=== PATIENT | female | born 1945 | race Caucasian/White ===

== ENCOUNTER 2016-08-14 11:36 | Observation (INO) | payer MEDICARE, OTHER ==
[~2016-08-14] VITALS: Ht 160 cm; Wt 78.9 kg
[~2016-08-14 11:36] MED LIST: ALBU8.5H3 INH; ASC500 PO; ASPI-664 PO; ATOR40TA21 PO; CLOP75TA19 PO; EZET10TA3 PO; FAMO20TA18 PO; HYDR12.58 PO; ISOS60TA36 PO; LEVO500T72 PO; LEVO50TA74 PO; METO-53 PO; MULT1TAB59 PO; RANO10002 PO; VITA1CAP38 PO
--- NOTE | 2016-08-14 12:31 | RADRPT ---
PROCEDURE: XR Chest. CLINICAL INDICATION: Chest and abdomen pain. TECHNIQUE: Single frontal view. COMPARISON: 08/20/2014. FINDINGS: The lungs are clear. The heart size is normal. There is calcification in the aorta consistent with atherosclerosis. There is no pleural effusion. There is no pneumothorax. IMPRESSION: 1. Atherosclerosis. 2. Otherwise normal chest radiograph. 3. No significant change from 08/20/2014. RPTAT: QQ .Som Holt MD, MD Date Time Electronically viewed and signed by .Som Holt MD, MD on 08/14/2016 12:31 .R/
[2016-08-14 12:45] LABS: BASOPHILS % 0.5 % (0.0-2.0); EOSINOPHILS # 0.1 10^3/ul (0.0-0.5); EOSINOPHILS % 0.9 % (0.0-7.0); HEMOGLOBIN 13.5 g/dl (12.0-16.0); LYMPHOCYTES # 2.8 10^3/ul (0.8-2.9); LYMPHOCYTES % 27.9 % (15.0-51.0); MEAN CORPUSCULAR HEMOGLOBIN 31.8 pg (29.0-33.0); MEAN CORPUSCULAR HGB CONC 33.8 g/dl (32.0-37.0); MEAN CORPUSCULAR VOLUME 94.3 fl (82.0-101.0); MEAN PLATELET VOLUME 8.5 fl (7.4-10.4); MONOCYTE # 0.8 10^3/ul (0.3-0.9); NEUTROPHIL # 6.4 10^3/ul (1.6-7.5); NEUTROPHILS % 62.7 % (39.0-77.0); PLATELET COUNT 259 10^3/UL (140-440); RED BLOOD COUNT 4.24 10^6/ul (4.20-5.40); RED CELL DISTRIBUTION WIDTH 13.2 % (11.5-14.5); UNCORRECTED WBC 10.2 10^3/ul (4.8-10.8); WHITE BLOOD COUNT 10.2 10^3/ul (4.8-10.8)
[2016-08-14 12:54] LABS: ALBUMIN 4.3 g/dl (3.3-4.9); CHLORIDE 102 mmol/L (97-110); INR 1.07; PROTIME 13.9 Sec (12.2-14.2); PT RATIO 1.1; SODIUM 146 mmol/L (135-144)
[2016-08-14 12:55] LABS: POTASSIUM 4.4 mmol/L (3.5-5.1)
[2016-08-14 12:57] LABS: ALANINE AMINOTRANSFERASE 19 IU/L (13-69); ALKALINE PHOSPHATASE 93 IU/L (42-121); ANION GAP 20 (8-16); ASPARTATE AMINO TRANSFERASE 27 IU/L (15-46); BILIRUBIN,INDIRECT 0.3 mg/dl (0-1.1); BILIRUBIN,TOTAL 0.3 mg/dl (0.2-1.3); BLOOD UREA NITROGEN 17 mg/dl (7-20); CARBON DIOXIDE 28 mmol/L (21-31); CREATININE 1.02 mg/dl (0.44-1.00); GLUCOSE 97 mg/dl (70-220); TOTAL PROTEIN 8.2 g/dl (6.1-8.1)
[2016-08-14 12:58] LABS: CALCIUM 9.9 mg/dl (8.4-10.2)
[2016-08-14 12:59] LABS: CONDITION 1
[2016-08-14 13:19] LABS: TROPONIN-I < 0.012 ng/ml (0.00-0.12)
--- NOTE | 2016-08-14 13:34 | ERA ---
ER Documentation Chief Complaint Date/Time DATE: 08/14/16 TIME: 13:23 Chief Complaint SEND BY PMD DUE ABNORMAL EKG, CP HPI 70-year-old woman referred here by her PMD for recent EKG changes and increasing exertional chest pain. Patient has a history coronary artery disease and is status post coronary artery stenting of LAD. She has had previous KS although it seems she has preserved left ventricular ejection fraction. She has had no cough, no fevers or chills, no calf or leg swelling, no headache or blurry vision. ROS All systems reviewed and are negative except as per history of present illness. Medications Home Meds Reported Medications Hydrochlorothiazide* (Hydrochlorothiazide*) 12.5 Mg Tablet, 12.5 MG PO DAILY, TAB 08/20/14 Aspirin (Aspirin Low Dose) 81 Mg Tablet.dr, 81 MG PO DAILY 09/26/12 Isosorbide Mononitrate (Isosorbide Mononitrate) 60 Mg Tab.sr.24h, 60 MG PO HS 09/26/12 Famotidine* (Famotidine*) 20 Mg Tablet, 20 MG PO BID 09/26/12 Atorvastatin (Lipitor) 40 Mg Tablet, 40 MG PO HS 09/26/12 Clopidogrel Bisulfate (Plavix) 75 Mg Tablet, 75 MG PO HS 09/26/12 Ranolazine* (Ranexa*) 1,000 Mg Tab.sr.12h, 1000 MG PO BID 09/26/12 Metoprolol (Lopressor) 50 Mg Tablet, 50 MG PO BID 09/26/12 Levothyroxine Sodium* (Levothyroxine Sodium*) 50 Mcg Tablet, 50 MCG PO DAILY 09/26/12 Discontinued Reported Medications Ascorbic Acid (Vitamin C) 500 Mg Tab, 500 MG PO DAILY, TAB 08/20/14 Multivitamins* (Multivitamins*) 1 Tab Tablet, 1 TAB PO DAILY 09/26/12 Vitamin B Complex* (Vitamin B Complex*) 1 Cap Capsule, 1000 MG PO DAILY 09/26/12 Ezetimibe* (Zetia*) 10 Mg Tablet, 10 MG PO HS 09/26/12 Discontinued Scripts Albuterol Sulfate* (Proair HFA*) 8.5 Gm Hfa.aer.ad, 2 PUFF INH Q4 Y for SHORTNESS OF BREATH for 30 Days, INH Prov:VIRGEN MARTINEZ MD 08/22/14 Levofloxacin* (Levaquin*) 500 Mg Tablet, 500 MG PO DAILY for 7 Days, TAB Prov:VIRGEN MARTINEZ MD 08/22/14 Allergies Allergies: Coded Allergies: No Known Drug Allergy (Verified Allergy, Unknown, 08/14/16) PMhx/Soc Coronary artery disease and KS with previous LAD stenting, hypertension, obstructive sleep apnea, hypothyroidism, depression, dyslipidemia, and angina. History of Surgery: Yes (c section and breast transplants) Anesthesia Reaction: No Hx Neurological Disorder: Yes Hx Respiratory Disorders: No Hx Cardiac Disorders: No Hx Psychiatric Problems: No Hx Miscellaneous Medical Probl: Yes (breast implants hard) Hx Alcohol Use: No Hx Substance Use: No Hx Tobacco Use: No Smoking Status: Never smoker FmHx Family History: diabetes Physical Exam Vitals Vital Signs Date Time Temp Pulse Resp B/P Pulse Ox O2 Delivery O2 Flow Rate FiO2 08/14/16 12:40 Nasal Cannula 2 08/14/16 11:40 98.1 73 18 116/61 99 Physical Exam GENERAL: Well-developed, well-nourished, well-hydrated, in no apparent distress , looks nontoxic in appearance HEENT: Moist mucous membranes, pink conjunctiva, no cervical spine tenderness or step-off deformities, no goiter, no jaundice or icterus, extraocular movements intact without pain. No submandibular induration, and no pharyngeal erythema NEURO: Alert and oriented 3, cranial nerves II through XII intact bilaterally, pupils equal round reactive to light, no focal deficits or facial asymmetry, sensation intact distally Strength 5/5 in upper and lower extremities bilaterally CARDIAC: Regular rate and rhythm, no murmurs rubs or gallops LUNGS: Clear bilaterally no wheezing crackles or stridor ABDOMEN: Soft nontender, no guarding, no rigidity, no rebound, no psoas sign no obturator sign. Normoactive bowel sounds SKIN: Warm and dry to touch, no abrasions, contusions, or hematomas, no lacerations, no ecchymosis, no target lesions, and without ulcers EXTREMITIES: No clubbing cyanosis or edema, calves are bilaterally symmetrical, no Homans sign, no popliteal cord sign. Distal pulses equal and bilateral PSYCH: Normal affect without agitation or irritability Result Diagram: 08/14/16 1230 08/14/16 1230 Results 24 hrs Laboratory Tests Test 08/14/16 12:30 Alanine Aminotransferase (ALT/SGPT) 19IU/L Albumin 4.3g/dl Albumin/Globulin Ratio 1.10 Alkaline Phosphatase 93IU/L Anion Gap 20 Aspartate Amino Transf (AST/SGOT) 27IU/L Basophils # 0.010^3/ul Basophils % 0.5% Blood Urea Nitrogen 17mg/dl Calcium Level 9.9mg/dl Carbon Dioxide Level 28mmol/L Chloride Level 102mmol/L Creatinine 1.02mg/dl Direct Bilirubin 0.00mg/dl Eosinophils # 0.110^3/ul Eosinophils % 0.9% Globulin 3.90g/dl Glucose Level 97mg/dl Hematocrit 40.0% Hemoglobin 13.5g/dl INR International Normalized Ratio 1.07 Indirect Bilirubin 0.3mg/dl Lipase 93U/L Lymphocytes # 2.810^3/ul Lymphocytes % 27.9% Mean Corpuscular Hemoglobin 31.8pg Mean Corpuscular Hemoglobin Concent 33.8g/dl Mean Corpuscular Volume 94.3fl Mean Platelet Volume 8.5fl Monocytes # 0.810^3/ul Monocytes % 8.0% Neutrophils # 6.410^3/ul Neutrophils % 62.7% Nucleated Red Blood Cells # 0.010^3/ul Nucleated Red Blood Cells % 0.0/100WBC Platelet Count 57921^3/UL Potassium Level 4.4mmol/L Prothrombin Time 13.9Sec Prothrombin Time Ratio 1.1 Red Blood Count 4.2410^6/ul Red Cell Distribution Width 13.2% Sodium Level 146mmol/L Total Bilirubin 0.3mg/dl Total Protein 8.2g/dl Troponin I < 0.012ng/ml White Blood Count 10.210^3/ul Procedures/MDM IV line was established patient was placed on director prospect rhythm strip revealed a sinus rhythm at about 70 bpm with upright P and T waves. Patient was afebrile. One AP view of the chest performed, read by me reveals no acute infiltrates, normal mediastinum, sharp costophrenic and cardiac borders, no air under the diaphragm. Otherwise unremarkable chest x-ray. EKG performed, read by me: 65 bpm, normal sinus rhythm, normal axis, no acute ST segment changes, narrow QRS complex, with good R-wave progression in precordial leads. I administered aspirin 325 mg p.o. for cardioprotective measures. CBC and electrolytes were normal, liver function tests were normal, troponin was negative. Patient will be admitted to telemetry setting for continued medical management and cardiology consultation Departure Diagnosis: Primary Impression: Chest pain Qualified Code: R07.9 - Chest pain, unspecified type Condition: SANTOS Narvaez MD Aug 14, 2016 13:34
[2016-08-14] MEDS ORDERED: ASPIRIN 325 MG TAB PO ONE (14:00)
[2016-08-14] MEDS ORDERED: NITROGLYCERIN (SL) 0.4 MG TAB SL PRN (14:00)
[2016-08-14] MEDS ORDERED: ZOLPIDEM 5 MG TAB PO PRN (14:00)
[2016-08-14] MEDS ORDERED: MAGNESIUM HYDROXIDE 30ML CUP PO PRN (14:00)
[2016-08-14] MEDS ORDERED: DOCUSATE SODIUM 100 MG CAP PO PRN (14:00)
[2016-08-14] MEDS ORDERED: ACETAMINOPHEN 325 MG TAB PO PRN (14:00)
[2016-08-14] MEDS ORDERED: LORAZEPAM 0.5 MG TAB PO PRN (14:00)
[2016-08-14] MEDS ORDERED: ONDANSETRON 4 MG INJ IV PRN (14:00)
[2016-08-14] MEDS ORDERED: NACL 0.9% 3 ML SYG IV SCH (14:00)
[2016-08-14] MEDS ORDERED: morphine 2 MG INJ IV PRN (14:00)
[2016-08-14 14:25] LABS: CK-MB 0.39 ng/ml (0.0-2.4)
--- NOTE | 2016-08-14 15:42 | HP ---
DATE OF ADMISSION: 08/14/2016 REASON FOR ADMISSION: T-wave inversion in anterolateral leads. Chest pain, rule out acute coronary syndrome. HISTORY OF PRESENT ILLNESS: The patient is a 70-year-old female with history of coronary artery disease, status post stenting twice, history of IL with preserved ejection fraction, history of obstructive sleep apnea, hypothyroidism, depression, hypertension, dyslipidemia, angina, although she takes Imdur and Ranexa, recently status post cardiac angiogram back in 2009 where she had stent ing done to the LAD, also the ramus intermedius was stented as well. In 2012, the ramus intermedius was 100% occluded and was a small vessel. The circumflex was 40%, the RCA was 40%, LAD was 20% an d the left main was 10% to 20%. The patient at that time was treated conservatively. The patient presented to my offic e today. She stated that she has to leave the state in less than 2 weeks and she is concerned about her heart condition as she has been experiencing on and off episodes of chest pain. She describes it as left-sided, it comes and goes and it is quite bothersome to her. In my office today, EKG was done and shows T-wave inversions in anterolateral leads, appears to be more obvious as compared to p rior EKGs. Upon discussion with the patient, the patient was overall concerned and it was decided t o send her to the [facility] for evaluation. In the ER, EKG showed th e same. It was decided to admit the patient to rule out acute coronary syndrome. Initial troponin was negative. The patient is admitted for further care. PAST MEDICAL HISTORY: Includes coronary artery disease, IL, hypertension, dyslipidemia, hypothyroid ism, depression, obstructive sleep apnea, obese state. ALLERGIES: NO KNOWN DRUG ALLERGIES. SOCIAL HISTORY: The patient is . She has 2 kids. SOCIAL HISTORY: Tobacco denies. Alcohol, she used to drink in the past. IV drug abuse, denies. 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 PAST SURGICAL HISTORY: Includes 2 C-sections, breast implants, tubal ligation, colonoscopy in 09/[address] Felipe shows 2 polyps in the rectum, which were removed. There was tubular adenoma, poo r prep to the right, it was recommended to repeat colonoscopy in 2 years. FAMILY HISTORY: Mother from CVA. She was 60 years old. Father 5 years ago, he was 84. He had tuberculosis, CVA and IL. The patient does have sleep apnea and she uses CPAP, previously se en by Dr. Hernández. CURRENT MEDICATIONS: Include the followin. Plavix 75 at bedtime. 2. Lipitor 40 at bedtime. 3. Imdur 60 at bedtime. 4. Lopressor 50 b.i.d. 5. Ranexa 1000 b.i.d. 6. Aspirin 81 daily. 7. Hydrochlorothiazide 12.5 daily. 8. Pepcid 20 b.i.d. 9. Synthroid 50 mcg daily. PHYSICAL EXAMINATION: VITAL SIGNS: Blood pressure is 116/61, pulse ox is 99 on 2 L, temperature 98.1, respirations 18, pu lse is 73. GENERAL: The patient is in no acute distress. She is overweight, slightly pale. HEENT: No JVD. CARDIOVASCULAR: S1 and S2, regular rate and rhythm. LUNGS: Clear. ABDOMEN: Soft, nontender. EXTREMITIES: Nonpitting edema of the lower extremities. NEUROLOGIC: Cranial nerves II through XII grossly intact. The patient moving all extremities. LABORATORY DATA: White count is 10.2, hemoglobin 13.5, hematocrit 40, platelet count 259, neutrophi ls 63%, lymphocytes monocytes 8%. Chemistry: Sodium is 146, potassium is 4.4, chloride 102, bicarb is 28, BUN is 17, creatinine 1.02, glucose of 97. AST 27, ALT 90, alk phos is 93. CK 72. Troponin is negative x1. Total protein 8.2, albumin is 4.3. INR is 1.07. DIAGNOSTIC DATA: Again, colonoscopy done back in 2012. At that time colonic polyp in the rectosigm oid area shows tubular adenoma. Also most recent surgery she had on 12/23/2015, she underwent remov al of bilateral breast implants and bilateral capsulectomy. This was removed because of significant breast pain. Chest x-ray shows atherosclerosis, otherwise normal chest radiograph. EKG showed ext ensive T-wave abnormalities anterolateral leads. ASSESSMENT AND PLAN: This is a 70-year-old female with history of coronary artery disease , hypertension, dyslipidemia, hypothyroidism, depression, obstructive sleep apnea, presented with ep isodic chest pain with T-wave inversions. The patient does have risk factors. 1. Chest pain with definite risk factors. Last angiogram was done in 2012. Continue medical manag ement, aspirin, statin, and Ranexa, Imdur. Serial troponins will be obtained as well as echocardiog yannick to evaluate ejection fraction. Dr. Levy will be consulted regarding EKG changes and patient's symptoms. 2. Respiratory, stable. Advised the patient to used her CPAP at night. Weight loss is definitely advised. 3. Gastrointestinal. Continue Protonix for gastrointestinal prophylaxis. Outpatient followup with gastroenterology regarding repeat colonoscopy. Previous colonoscopy showed poor prep and she had p olyps. 4. Hypothyroidism. Follow up with TSH level. Continue Synthroid. 5. The patient will be placed on deep vein thrombosis prophylaxis and gastrointestinal prophylaxis. We will follow. Dictated By: VIRGEN CORONADO/SUNDEEP Conf#: [id number] DID#: [id number]
--- NOTE | 2016-08-14 17:39 | RADRPT ---
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 Physician: VIRGEN MARTINEZ Quality: Technically Difficult Study Procedures: Transthoracic echocardiogram with complete 2D, M-Mode, and doppler examination. Indications: Chest Pain. Coronary Artery Disease. 2D/M Mode Doppler Measurement Value Normal Ranges Measurement Value Normal Ranges LVIDd 2D 4.5 3.5 - 5.6 cm AV Peak Jorge 1.4 m/sec LVIDs 2D 3.1 2.1 - 4.1 cm AV Peak PG 8.0 mmHg FS 2D 30.7 % LVOT Peak Jorge 1.0 m/sec LVPWd 2D 1.0 0.6 - 1.1 cm LVOT Peak PG 4.0 mmHg IVSd 2D 1.0 0.6 - 1.1 cm MV E Peak Jorge 0.6 m/sec IVS/LVPW 2D 1.0 MV A Peak Jorge 0.8 m/sec AoR Diam 2D 2.7 2.0 - 3.7 cm MV E/A 0.8 LA/Ao 2D 1 0 - 1 MV Decel Time 313 msec EDV 2D 90.5 cm3 MV E/A 0.8 ESV 2D 30.1 cm3 LA Dimen 2D 3.4 2.3 - 4.0 cm Findings Left Ventricle: Normal left ventricular systolic function. Normal left ventricular cavity size. Normal left ventricular wall thickness. Ejection fraction is visually estimated at 60 %. Tissue Doppler/Mitral Doppler indices are consistent with impaired relaxation (Stage I diastolic dysfunction). Right Ventricle: Normal right ventricular size. Normal right ventricular systolic function. Left Atrium: The left atrium is normal in size. Right Atrium: The right atrium is normal in size. Mitral Valve: Mitral valve leaflets appear mildly thickened. Mild mitral annular calcification. Trace mitral regurgitation. Aortic Valve: No significant aortic stenosis or insufficiency. Normal trileaflet aortic valve structure. Tricuspid Valve: Tricuspid valve not well visualized. There is trace tricuspid regurgitation. Pulmonic Valve: Pulmonic valve not well visualized. There is trace pulmonic regurgitation. Pericardium: There is an anterior echo free space consistent with epicardial fat pad. Aorta: Normal aortic root. IVC: Normal size and no respiratory collapse consistent with elevated right atrial pressure. Conclusions 1.Normal left ventricular systolic function. Normal left ventricular cavity size. Normal left ventricular wall thickness. Ejection fraction is visually estimated at 60 %. Tissue Doppler/Mitral Doppler indices are consistent with impaired relaxation (Stage I diastolic dysfunction). 2.Mitral valve leaflets appear mildly thickened. Mild mitral annular calcification. Trace mitral regurgitation. 3.No significant aortic stenosis or insufficiency. Normal trileaflet aortic valve structure. 4.Tricuspid valve not well visualized. There is trace tricuspid regurgitation. Electronically Signed By: Wade Levy 14-Aug-2016 17:38:56 -0800 Patient Name: MALIKA MENDOZA Study Date: 14-Aug-[id number]
--- NOTE | 2016-08-14 18:00 | CONS ---
DATE OF ADMISSION: 08/14/2016 DATE OF CONSULTATION: 08/14/2016 TYPE OF CONSULTATION: Cardiology consultation. REFERRING PHYSICIAN: Saturnino Martinez MD REASON FOR CONSULTATION: Chest pain, abnormal EKG. CHIEF COMPLAINT: Fatigue. HISTORY OF PRESENT ILLNESS: Thank you for this referral. History obtained from the patient and ext ensive review of the old chart. The patient extremely poor historian. The patient also has been kn own to me from outpatient hospital followup for her hospitalization. This is a pleasant 70-year-old female with history of coronary artery disease, status post remote PCI in 2009, who has had basical ly chronic chest pain. The patient was seen last by myself in March. At that time, she had a stre ss test done which was submaximal but no ischemia was seen at 5 minutes. The patient was seen in Dr Carleen Martinez's office today for routine followup prior to her traveling to outside of the [facility]. EKG was done which was abnormal. She was admitted to the hospital for further workup. At this point, ethan es any chest pain or pressure to me. The patient said she has had chest pain intermittently once in a while and does not appear to be changing over the past six months. It is not exertional. It las ts a few seconds up to hours. Left-sided and sharp. PAST MEDICAL HISTORY: History of coronary artery disease, status post VT, status post PCI of his LA D in 2009, history of dyslipidemia, history of chronic chest pain, history of dyspnea that is possib ly of restrictive lung disease, low DLCO and history of hypothyroidism. PAST SURGICAL HISTORY: In 2009, she underwent diagnostic angiography by myself. Left main had 10% stenosis. LAD had 80% which was successfully stented using 2.5 x 12 bare metal stent. The ramus in termediate has 100% occlusion, which was successfully angioplastied. Left circumflex artery had tara nal irregularity. RCA was 30%. She apparently had an angiogram in 2011. Also in 2012 had another angiography done which showed left main 10% to 20% distal stenosis. LAD had 20% stenosis, ramus int ermedius was 100% occluded was a small vessel. The left circumflex artery was 40% occluded. Right coronary artery was 40% mid level and 40% ostial LOVE. Ejection fraction was normal at 55% to 60%. Also, she has had a breast implant and removal. Removal was done last year. ALLERGIES: NO KNOWN DRUG ALLERGIES. FAMILY HISTORY: Father had an VT at age 80. CVA in his 70s. Mother had CVA in her 50s reported. SOCIAL HISTORY: The patient does not smoke or drink. MEDICATIONS: She does not remember but per review of the old her chart from my office she is suppos ed to be takin. Aspirin. 2. Lipitor 40. 3. Vitamin D3. 4. Plavix 75. 5. Pepcid. 6. Hydrochlorothiazide 12.5. 7. Imdur 60. 8. Levothyroxine 50. 9. Metoprolol 50 b.i.d. 10. Ranexa 1000 b.i.d. REVIEW OF SYSTEMS: She denied all except for above-mentioned including positive for fatigue and tir edness. PHYSICAL EXAMINATION: VITAL SIGNS: Temperature 98.1, heart rate of 73, blood pressure 116/61, respiration rate of 18, sat urating 99%. HEENT: Normocephalic, atraumatic. Appears in no acute distress. Pupils equal and round. CARDIOVASCULAR: Regular rate and rhythm. Grade I systolic murmur. LUNGS: With no wheezes, no rhonchi. GASTROINTESTINAL: Soft, nontender. EXTREMITIES: No significant edema. CHEST: Positive reproducible chest wall tenderness. PULMONARY: With no wheezes or rales. DIAGNOSTIC DATA: EKG was personally reviewed, showed normal sinus rhythm, nonspecific ST-T abnormal ities such as ischemia. LABORATORY: Done shows WBC of 10.2, hemoglobin 13.5, platelet of 259. Sodium 146, potassium 4.4, B UN of 17, creatinine of 1.02, glucose of 97. Albumin is 4.3. EKG was personally reviewed, showed normal sinus rhythm, nonspecific ST-T abnormalities. Review of the old chart showed that she had an EKG in my office in November 2015, which also showed normal sinus rhythm with nonspecific ST-T abnormalities. ASSESSMENT AND PLAN 1. Chest pain syndrome, rule out non-ST elevation myocardial infarction. 2. Chronic chest pain on medical therapy. 3. History of coronary artery disease, history of myocardial infarction. 4. History of percutaneous coronary intervention of the left anterior descending, left circumflex a rtery and angioplasty of ramus. 5. Hypothyroidism. 6. Hypertension. 7. Dyslipidemia. RECOMMENDATIONS: The patient will be observed overnight for rule out myocardial infarction. Aspiri n, Plavix and Lipitor, Imdur, Metoprolol and Ranexa will be continued. to be considered to [place] if the cardiac enzymes are negative. I will set her up for outpatient stress test. Thank you for this referral. Dictated By: HORTENSIA ARROYO MD AV/NTS Conf#: [id number] DID#: [id number] CC: SATURNINO MARTINEZ MD;*EndCC*
[2016-08-14 18:02] VITALS: TEMP 98.1
[2016-08-14] MEDS ORDERED: ATORVASTATIN 40 MG TAB PO SCH (21:00)
[2016-08-14] MEDS ORDERED: CLOPIDOGREL 75 MG TAB PO SCH (21:00)
[2016-08-14] MEDS ORDERED: ISOSORBIDE MONONITRATE(SR)60 MG TAB PO SCH (21:00)
[2016-08-14 21:07] LABS: CREATINE KINASE 54 IU/L (23-200)
[2016-08-14 21:18] LABS: CK-MB 0.39 ng/ml (0.0-2.4)
[2016-08-14 21:22] LABS: TROPONIN-I < 0.012 ng/ml (0.00-0.12)
[2016-08-14] MEDS: METOPROLOL 50 MG TAB PO SCH (21:52)
[2016-08-14] MEDS: RANOLAZINE (SR) 500 MG TAB PO SCH (21:52)
[2016-08-15] VITALS (10 sets, daily range): BP systolic 95–148; BP diastolic 48–73; PULSE 56–70; RESP 18–19; Ht 160 cm; Wt 78.9 kg
[2016-08-15] MEDS ORDERED: PANTOPRAZOLE (EC) 40 MG TAB PO SCH (06:00)
[2016-08-15 06:49] LABS: BASOPHILS % 0.4 % (0.0-2.0); EOSINOPHILS # 0.2 10^3/ul (0.0-0.5); EOSINOPHILS % 2.2 % (0.0-7.0); HEMATOCRIT 35.6 % (37.0-47.0); HEMOGLOBIN 12.3 g/dl (12.0-16.0); LYMPHOCYTES # 2.2 10^3/ul (0.8-2.9); LYMPHOCYTES % 31.8 % (15.0-51.0); MEAN CORPUSCULAR HEMOGLOBIN 32.7 pg (29.0-33.0); MEAN CORPUSCULAR HGB CONC 34.6 g/dl (32.0-37.0); MEAN CORPUSCULAR VOLUME 94.6 fl (82.0-101.0); MEAN PLATELET VOLUME 8.9 fl (7.4-10.4); MONOCYTE # 0.5 10^3/ul (0.3-0.9); MONOCYTES % 7.8 % (0.0-11.0); NEUTROPHILS % 57.8 % (39.0-77.0); PLATELET COUNT 212 10^3/UL (140-440); RED BLOOD COUNT 3.76 10^6/ul (4.20-5.40); RED CELL DISTRIBUTION WIDTH 13.2 % (11.5-14.5); UNCORRECTED WBC 6.9 10^3/ul (4.8-10.8); WHITE BLOOD COUNT 6.9 10^3/ul (4.8-10.8)
[2016-08-15 06:56] LABS: ALBUMIN 3.4 g/dl (3.3-4.9)
[2016-08-15 06:57] LABS: POTASSIUM 4.2 mmol/L (3.5-5.1)
[2016-08-15 06:59] LABS: ALBUMIN/GLOBULIN RATIO 1.06; BILIRUBIN,INDIRECT 0.4 mg/dl (0-1.1); BILIRUBIN,TOTAL 0.4 mg/dl (0.2-1.3); CREATININE 0.89 mg/dl (0.44-1.00); TOTAL PROTEIN 6.6 g/dl (6.1-8.1)
[2016-08-15 07:00] LABS: CALCIUM 8.6 mg/dl (8.4-10.2)
[2016-08-15 07:01] LABS: CHOL/HDL RATIO 4.5 RATIO
[2016-08-15 07:24] LABS: CONDITION 1
[2016-08-15 07:24] LABS: THYROID STIMULATING HORMONE 3.24 MIU/L (0.465-4.680)
[2016-08-15] MEDS ORDERED: ENOXAPARIN 40 MG/0.4 ML SYG SC SCH (09:00)
[2016-08-15] MEDS ORDERED: LEVOTHYROXINE 50 MCG TAB PO SCH (09:00)
[2016-08-15] MEDS ORDERED: ASPIRIN (EC) 81 MG TAB PO SCH (09:00)
[2016-08-15] MEDS: METOPROLOL 50 MG TAB PO SCH (10:25)
[2016-08-15] MEDS: RANOLAZINE (SR) 500 MG TAB PO SCH (10:26)
--- NOTE | 2016-08-15 10:35 | PDOCDIS ---
Discharge Instructions CONDITION Patient Condition: Stable HOME CARE INSTRUCTIONS: Special Diet: Low fat Low cholesterol 2Gm NA ACTIVITY: Activity Restrictions: Slowly Increase Activity FOLLOW UP/APPOINTMENTS Appointments follow up with Dr. Levy on wednesday/has an appointment, see attached prescriptions, call 911 if any change in condition VIRGEN MARTINEZ MD Aug 15, 2016 10:35
[2016-08-15] MEDS ORDERED: ATOR40TA68 PO (10:37)
[2016-08-15] MEDS ORDERED: PANT40TA4 PO (10:37)
--- NOTE | 2016-08-15 15:03 | DS ---
DATE OF ADMISSION: 08/14/2016 DATE OF DISCHARGE: 08/15/2016 REASON FOR ADMISSION: Abnormal EKG, rule out acute coronary syndrome. HOSPITAL COURSE: The patient is a 70-year-old female with history of coronary artery dise ase, status post stenting twice back in 2009. The patient has history of hypothyroidism, sleep apne a, hypertension, dyslipidemia, angina, who presented to my office. The EKG my office did reveal fli pped T waves in the anterior lateral leads, more pronounced than before. The patient has been exper iencing intermittent chest pain, and she was concerned about her condition. She stated she is going out of the state soon. At [facility] in the ER, EKG confirmed the same. It was decided to admit the patient for observation to rule out acute coronary syndrome. During her hospitalization, the supriya barr was seen by the talent rep, Dr. Levy. She underwent an echocardiogram which showed normal ejection fraction 60%, stage I diastolic dysfunction. See exact report. Upon admission, the alexsandra ochoa was started on aspirin, Plavix, statin. We continued the patient on Ranexa and Imdur. She was p laced on oxygen. Serial troponins were done and they were negative. Cholesterol revealed to be 211 , LDL was high at 134 for a patient with coronary artery disease. Triglycerides 157. CMP otherwise normal. TSH 3.24, lipase 93. CBC was within normal limits as well. Chest x-ray showed atheroscle rosis, otherwise normal chest radiograph. The patient is currently feeling okay. Denies any chest pain. She will be discharged. FINAL DIAGNOSES: 1. Chest pain, rule out acute coronary syndrome. 2. Coronary artery disease. 3. Dyslipidemia. 4. Hypertension. 5. Hypothyroidism. 6. Obstructive sleep apnea. 7. Atherosclerotic cardiovascular disease. 8. History of myocardial infarction. 9. Depression. 10. Obese state with body mass index of 30.8. DIET: Low fat, low carb diet is advised. No added salt. ACTIVITY: As tolerated. The patient has an appointment with Dr. Levy, the talent rep to undergo a nuclear stress test th is coming week, so she will follow up and further cardiac care will be provided. DISCHARGE MEDICATIONS: The patient will be discharged with the following medications. 1. I am increasing patient's Lipitor to 80 mg at bedtime. 2. Continue Protonix 40 mg daily. 3. Aspirin 81 mg daily. 4. Plavix 75 mg daily. 5. Imdur 60 mg daily. 6. Synthroid 50 mcg daily. 7. Metoprolol tartrate 50 mg b.i.d. 8. Ranexa 1000 b.i.d. CONDITION ON DISCHARGE: Fair. No significant arrhythmias overnight. The patient will be discharge d today. Dictated By: VIRGEN CORONADO/SUNDEEP Conf#: [id number] DID#: [id number]
== END 2016-08-15 18:45 | disposition home or self-care (01) ==
LOC: E/R 11:36 → INTOOBSV 13:37 → TEL 13:37
PROVIDERS: ADMIT Internal Medicine; ATTEND Internal Medicine
DX: R07.9 Chest pain, unspecified (principal); I25.10 Atherosclerotic heart disease of native coronary artery without angina pectoris; Z95.5 Presence of coronary angioplasty implant and graft; I10 Essential (primary) hypertension; G47.33 Obstructive sleep apnea (adult) (pediatric); E03.9 Hypothyroidism, unspecified; F32.9 Major depressive disorder, single episode, unspecified; E78.5 Hyperlipidemia, unspecified; I25.2 Old myocardial infarction; E66.9 Obesity, unspecified; Z68.30 Body mass index [BMI] 30.0-30.9, adult; Z79.82 Long term (current) use of aspirin; Z79.02 Long term (current) use of antithrombotics/antiplatelets; Z83.3 Family history of diabetes mellitus; Z82.49 Family history of ischemic heart disease and other diseases of the circulatory system; Z82.3 Family history of stroke
CPT/HCPCS: 36415; 71010; 80053; 80061; 82550; 82553; 83690; 83735; 84443; 84484; 85025; 85610; 93005; 93306; 99285; G0378; J1650

== ENCOUNTER 2016-09-21 07:47 | Emergency (ER) | payer MEDICARE, OTHER ==
[~2016-09-21] VITALS: Wt 77.0 kg
[~2016-09-21 07:47] MED LIST changes: -ALBU8.5H3 INH; -ASC500 PO; -ATOR40TA21 PO; +ATOR40TA68 PO; -EZET10TA3 PO; -FAMO20TA18 PO; -HYDR12.58 PO; -LEVO500T72 PO; -MULT1TAB59 PO; +PANT40TA4 PO; -VITA1CAP38 PO
[2016-09-21] MEDS ORDERED: DEXAMETHASONE 10 MG/ML 1 ML INJ IM ONE (09:00)
[2016-09-21] MEDS ORDERED: ACET325T33 PO (09:11)
--- NOTE | 2016-09-21 12:09 | ERD ---
ER Documentation Chief Complaint Date/Time DATE: 09/21/16 TIME: 12:01 Chief Complaint SORE THROAT AND UNABLE TO TALK. NO SOB. NO EAR PAIN. HPI The patient is a 8-year-old female with past medical history of coronary artery disease, [place] in 2010, and 2 stents placed. She comes to the emergency department stating that she "lost her voice" 2 days ago. She reported being sick with a fever, sore throat, and body aches 5 days ago, and all of her symptoms have resolved, except her loss of voice. No home treatments. No international travel. No sick contacts. She denies any difficulty swallowing, denies drooling , denies difficulty breathing, denies respiratory distress, denies chest pain, denies fever/chills, denies nausea/vomiting, denies diarrhea or constipation, denies neck soreness or stiffness, denies headache, denies photophobia, denies dysuria, denies any other symptoms or concerns. ROS All systems reviewed and are negative except as per history of present illness. Medications Home Meds Active Scripts Acetaminophen* (Tylenol*) 325 Mg Tablet, 2 TAB PO Q6 Y for PAIN AND OR ELEVATED TEMP, #20 TAB Prov:PERLA SORIA, ELECTRONIC ORGAN MECHANIC 09/21/16 Pantoprazole* (Pantoprazole*) 40 Mg Tablet., 40 MG PO DAILY@06 for 90 Days, # 90 Prov:VIRGEN MARTINEZ MD 08/15/16 Atorvastatin* (Atorvastatin*) 40 Mg Tablet, 80 MG PO HS for 90 Days, TAB Prov:VIRGEN MARTINEZ MD 08/15/16 Reported Medications Aspirin (Aspirin Low Dose) 81 Mg Tablet., 81 MG PO DAILY 09/26/12 Isosorbide Mononitrate (Isosorbide Mononitrate) 60 Mg Tab.sr.24h, 60 MG PO HS 09/26/12 Clopidogrel Bisulfate (Plavix) 75 Mg Tablet, 75 MG PO HS 09/26/12 Ranolazine* (Ranexa*) 1,000 Mg Tab.sr.12h, 1000 MG PO BID 09/26/12 Metoprolol (Lopressor) 50 Mg Tablet, 50 MG PO BID 09/26/12 Levothyroxine Sodium* (Levothyroxine Sodium*) 50 Mcg Tablet, 50 MCG PO DAILY 09/26/12 Allergies Allergies: Coded Allergies: No Known Drug Allergy (Verified Allergy, Unknown, 08/14/16) PMhx/Soc History of Surgery: Yes (, Breast transplant Sx & removal) Anesthesia Reaction: No Hx Neurological Disorder: No Hx Respiratory Disorders: Yes (asthma) Hx Cardiac Disorders: Yes (CAD, stent x2, HTN) Hx Psychiatric Problems: No (was on antidepressant in the past) Hx Miscellaneous Medical Probl: Yes (Hx arm lift) Hx Alcohol Use: No Hx Substance Use: No Hx Tobacco Use: No Physical Exam Vitals Vital Signs Date Time Temp Pulse Resp B/P Pulse Ox O2 Delivery O2 Flow Rate FiO2 09/21/16 07:49 99.9 69 20 165/78 97 Physical Exam INITIAL VITAL SIGNS: Reviewed by me, afebrile, oximetry 97% on room air, no tachypnea GENERAL: Alert. Well developed and well nourished. No respiratory distress. No acute distress. Nontoxic appearing. HEAD: Head is normocephalic. Atraumatic. EYES: EOMI. No scleral icterus. No conjunctival injection. No clear purulent drainage. ENT: External ears, nose, and mouth normal. Ear canals clear. Tympanic membranes pearly/gonzalez, no effusion/erythema/bulging/retraction. Nasal passages patent and without rhinorrhea. Oropharynx without exudates. Tonsils +2 and without exudates. Moderate tonsillar erythema. Airway patent. Uvula midline. Moist mucous membranes. NECK: Supple. Full range of motion. Trachea midline. No meningismus. No lymphadenopathy. RESPIRATORY: No tachypnea. Clear to auscultation bilaterally. No wheezing, rales , or rhonchi. CV: Regular rate and rhythm. No murmurs, rubs, or gallops ABDOMEN: Soft, non-distended, non-tender. Bowel sounds normal in all quadrants. BACK: No CVA tenderness. Full ROM. EXTREMITIES: No obvious deformity. No clubbing or cyanosis. No edema. SKIN: Warm and dry. No diaphoresis. No obvious rashes or lesions. NEUROLOGIC: Alert and oriented x 3. Appropriate. Face is symmetric. Speech is normal. Moves all extremities equally. Results 24 hrs Current Medications Medications (Trade) Dose Ordered Sig/Dayna Route PRN Reason Start Time Stop Time Status Last Admin Dose Admin Dexamethasone (Decadron) 8 mg ONCE ONCE IM 09/21/16 09:00 09/21/16 09:01 DC 09/21/16 08:59 Procedures/MDM Nursing Notes Reviewed Previous Medical Records requested via [facility] [employer]. EMERGENCY DEPARTMENT COURSE / MEDICAL DECISION MAKING: The patient comes to the ED secondary to loss of voice 2 days. Differential diagnosis upon initial evaluation includes but is not limited to: Peritonsillar abscess, epiglottitis, strep pharyngitis, viral pharyngitis, laryngitis, viral syndrome, URI, pneumonia, sepsis, meningitis, and others. The case was discussed with supervising physician Dr. Barcenas. It was agreed that the patient will be treated with Decadron 8 mg IM, and that she is an appropriate candidate for outpatient management and follow-up at this time. She denied any respiratory difficulty, difficulty swallowing, sore throat, drooling , malaise, fever, chills, nausea, vomiting, diarrhea, body aches, neck soreness or stiffness, cough, or any other signs or symptoms. Given this, her benign physical exam, and her history of present illness, I have low suspicion at this time for peritonsillar abscess, epiglottitis, strep pharyngitis, viral pharyngitis, pneumonia, sepsis, meningitis, or any serious cause of the patient' s symptoms. The patient was treated with Decadron 8 mg IM. Final impression: Laryngitis Based on patient's history of present illness and physical examination the decision was made to discharge. There is no evidence of life threatening injuries or illnesses at this time. On re-examination, patient resting in no distress, stable vital signs, reports feeling better and safe for discharge with outpatient follow up with PMD in 2-3 days. Patient given return precautions. The patient verbalized understanding and agreed to return precautions. She will return here immediately for any new or worsening symptoms. She verbalized understanding and agreed to the plan of care. I discussed various rest with her. I instructed her to please not whisper or talk on the phone. I instructed her to talk the least amount possible. She verbalized understanding and agreed. She will follow-up as directed. Patient's blood pressure was elevated but appears stable without evidence of hypertensive emergency, end organ damage, chest pain or shortness of breath. The patient was counseled about the risks of untreated hypertension and urged to pursue outpatient monitoring and therapy in 2-3 days with their primary care physician. Prescription Tylenol Departure Diagnosis: Primary Impression: Laryngitis, acute Additional Impression: Pharyngitis, acute Condition: Stable Patient Instructions: Laryngitis Additional Instructions: Call your primary care doctor TOMORROW for an appointment during the next 2-3 days.See the doctor sooner or return here if your condition worsens before your appointment time. Voice rest is very important at this time. Please refrain from talking on the phone or whispering as much as possible. PERLA SORIA NP Sep 21, 2016 12:09
== END 2016-09-21 09:20 | disposition home or self-care (01) ==
LOC: FTE 07:47
DX: J04.0 Acute laryngitis (principal); I10 Essential (primary) hypertension; J45.909 Unspecified asthma, uncomplicated; I25.10 Atherosclerotic heart disease of native coronary artery without angina pectoris; Z79.82 Long term (current) use of aspirin
CPT/HCPCS: 96372; 99284; J1100

== ENCOUNTER 2017-05-25 08:07 | Day surgery (SDC) | payer MEDICARE, OTHER ==
[~2017-05-25] VITALS: Ht 160 cm; Wt 75.5 kg
[~2017-05-25 08:07] MED LIST changes: +ACET325T33 PO
[2017-05-25] MEDS ORDERED: NIT4 SL (09:00)
[2017-05-25] MEDS ORDERED: MULTI PO (09:00)
[2017-05-25] MEDS ORDERED: ALBU8.5H3 INH (09:02)
[2017-05-25 09:33] VITALS: Ht 160 cm; Wt 75.5 kg
[2017-05-25 09:35] VITALS: BP 151/72; PULSE 59; RESP 16
[2017-05-25] MEDS ORDERED: LIDOCAINE 1% (MDV) 20 ML INJ ONE (10:08)
[2017-05-25] MEDS ORDERED: IODIXANOL LOCM 100 ML BTL ONE ×2 (10:08→10:59)
[2017-05-25] MEDS ORDERED: MIDAZOLAM 1 MG/ML 2 ML INJ ONE (10:08)
[2017-05-25] MEDS ORDERED: SOD CHLORIDE 0.9% 1,000 ML IV SCH (11:22)
--- NOTE | 2017-05-25 11:28 | OPR ---
Date/Time of Note Date/Time of Note DATE: 05/25/17 TIME: 11:24 Operative Report Procedure Date: May 25, 2017 Preoperative Diagnosis chest pain and abnormal stress test Postoperative Diagnosis same Surgeon see signature line Thermocouple Tester N/A Anesthesia Type: moderate sedation Estimated Blood Loss: none Transfusion none Specimen NONE Grafts/Implants none Complications none Procedure Description Procedure performed: 1. Left heart catheterization, selective right and left coronary angiogram 2. right femoral angiogram and closure of the right femoral artery using a perclose device 3. moderate sedation for more than 45 minutes. Target Setter: Hortensia Levy MD Indication:: Chest pain and abnormal stress test Findin. Left main coronary artery: HAS 20% distal stenosis 2. Left anterior descending artery: Its a moderate size vessel. It has 30 % stenosis proximally, and 40 % stenosis of the mid LAD. Mid LAD stent appeared to be patent. 3. Left circumflex artery: Is very small and nondominant. It has no significant stenosis. 4. Right coronary artery: Is a large and dominant vessel. It has 40-50 % stenosis at mid RCA. PDA stent appeared to be patent. 5. LV pressure: 142/11; Aortic pressure by pull back is 151/63 Written informed consent with obtained after risks benefits and alternatives discussed with the patient in detail. risks including but not limited to risk of infection vascular complications, bleeding complications, [place] stroke arrhythmia renal failure at even were discussed with the patient in detail. Patient was brought into the cardiac medical laboratory technicians and placed in supine position. Right and left groin area was prepped and draped in regular sterile fashion and then he was in anesthetized using 1% lidocaine. Right femoral artery was cannulated and using modified seldinger technique a 6 Albanian sheath was placed in the right femoral artery. Right femoral angiogram was performed. JL4 catheter was advanced and engaged into the left main coronary artery and angiographic view was obtained. The JR4 catheter was advanced and engaged right coronary artery angiographic view was obtained. JL4 was advanced to engage the left ventricle hemodynamics as recorded by pullback aortic pressure was measured Patient tolerated procedure well with no complication. Patient is to be transferred to recovery room in stable condition. contrast used: 15 cc Conclusions: Moderate but nonobstructive coronary artery disease. Recommend continuation of medical therapy. HORTENSIA LEVY MD [facility] HORTENSIA LEVY MD May 25, 2017 11:28
--- NOTE | 2017-05-25 11:28 | OPR ---
Date/Time of Note Date/Time of Note DATE: 05/25/17 TIME: 11:24 Operative Report Procedure Date: May 25, 2017 Preoperative Diagnosis chest pain and abnormal stress test Postoperative Diagnosis same Surgeon see signature line Broomcorn Seeder N/A Anesthesia Type: moderate sedation Estimated Blood Loss: none Transfusion none Specimen NONE Grafts/Implants none Complications none Procedure Description Procedure performed: 1. Left heart catheterization, selective right and left coronary angiogram 2. right femoral angiogram and closure of the right femoral artery using a perclose device 3. moderate sedation for more than 45 minutes. Senior Health Consultant: Hortensia Levy MD Indication:: Chest pain and abnormal stress test Findin. Left main coronary artery: HAS 20% distal stenosis 2. Left anterior descending artery: Its a moderate size vessel. It has 30 % stenosis proximally, and 40 % stenosis of the mid LAD. Mid LAD stent appeared to be patent. 3. Left circumflex artery: Is very small and nondominant. It has no significant stenosis. 4. Right coronary artery: Is a large and dominant vessel. It has 40-50 % stenosis at mid RCA. PDA stent appeared to be patent. 5. LV pressure: 142/11; Aortic pressure by pull back is 151/63 Written informed consent with obtained after risks benefits and alternatives discussed with the patient in detail. risks including but not limited to risk of infection vascular complications, bleeding complications, [place] stroke arrhythmia renal failure at even were discussed with the patient in detail. Patient was brought into the cardiac landscape and yardwork laborer and placed in supine position. Right and left groin area was prepped and draped in regular sterile fashion and then he was in anesthetized using 1% lidocaine. Right femoral artery was cannulated and using modified seldinger technique a 6 Bengali sheath was placed in the right femoral artery. Right femoral angiogram was performed. JL4 catheter was advanced and engaged into the left main coronary artery and angiographic view was obtained. The JR4 catheter was advanced and engaged right coronary artery angiographic view was obtained. JL4 was advanced to engage the left ventricle hemodynamics as recorded by pullback aortic pressure was measured Patient tolerated procedure well with no complication. Patient is to be transferred to recovery room in stable condition. contrast used: 15 cc Conclusions: Moderate but nonobstructive coronary artery disease. Recommend continuation of medical therapy. HORTENSIA LEVY MD [facility] HORTENSIA LEVY MD May 25, 2017 11:28
[2017-05-25] MEDS ORDERED: ACETAMINOPHEN 325 MG TAB PO PRN (11:30)
[2017-05-25] MEDS ORDERED: morphine 2 MG INJ IV PRN (11:30)
[2017-05-25 11:45] VITALS: BP 179/77; PULSE 51; RESP 18
[2017-05-25] MEDS ORDERED: FAMOTIDINE 20 MG INJ IV ONE (12:30)
[2017-05-25 12:45] VITALS: BP 165/74; PULSE 55; RESP 18
[2017-05-25 13:45] VITALS: BP 164/75; PULSE 56; RESP 18
[2017-05-25 14:45] VITALS: BP 160/70; PULSE 55; RESP 18
[2017-05-25 18:45] VITALS: BP 161/70; PULSE 55; RESP 18
== END 2017-05-25 20:15 | disposition home or self-care (01) ==
LOC: SDS 08:07
PROVIDERS: ATTEND Internal Medicine Interventional Cardiology
DX: R07.9 Chest pain, unspecified (principal); R94.39 Abnormal result of other cardiovascular function study
CPT/HCPCS: 80053; 80061; 82550; 82553; 84484; 85025; 85610; 85730; 93458; C1760; C1769; C1887; C1894; J1644; J2250; Q9967